=== PATIENT | female | born 1950 | race Caucasian/White ===

== ENCOUNTER 2020-03-02 09:59 | Emergency (ER) | payer BC ==
[~2020-03-02] VITALS: Ht 165.1 cm; Wt 115.9 kg
[2020-03-02] MEDS ORDERED: GLIPIZIDE ER10 MG (10:41)
[2020-03-02] MEDS ORDERED: ALLOPURINOL100 MG (10:41)
[2020-03-02] MEDS ORDERED: METFORMIN HCL1000 MG (10:41)
[2020-03-02] MEDS ORDERED: RAMIPRIL10 MG (10:41)
[2020-03-02] MEDS ORDERED: MULTI-VITAMIN1 EACH (10:42)
[2020-03-02] MEDS ORDERED: ALLEGRA ALLERGY60 MG (10:42)
--- NOTE | 2020-03-02 10:57 | Emergency Department Note ---
History of Present Illnes History of Present Illness Chief Complaint: Eye, Ear, Nose, Throat, Dental History of Present Illness This is a 69 year old female with a history of HTN, DM and partial deafness who presents for evaluation of a foreign body in the right ear. Pt states that she changed the small, soft plastic ear pieces on her hearing aids 2 night ago. She went to put the hearing aids in yesterday morning, and noted that the right one did not contain an ear piece. She assumed that it had fallen out on the floor whenever she changed them out. They are small and made of clear plastic, which makes them difficult to see. Pt had some difficulty putting the right hearing aid back in her ear, once she placed another earpiece. She states that she "feels somehting in the right ear," and she is concerned that it is the missing earpiece. She denies any ear pain, drainage or swelling. She has baseline hearing loss in this ear. 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 Any updates have been documented here. Past Medical History Recent Fever: No Clinical Suspicion of Infectio: No New/Unexplained Change in Ment: No Past Medical History: Hypertension, Diabetes Other Medical History: gout seasonal allergies Past Surgical History: Cholecysctectomy Other Surgery: wisdom teeth surgery Social History Smoking Cessation: Never Smoker Counseling Performed: No Alcohol Use: None Any Illegal Drug Use: No TB Exposure/Symptoms: No Physically hurt or threatened: No Family History Family history of heart diseas: Yes Other Last Tetanus: Unknown Any Pre-Existing Lines (PICC,: No Is patient up to date on immun: Yes Last Flu: UTD Last Pneumovax: UTD Review of Systems Review of Systems Constitutional: no symptoms EENTM: no symptoms Cardiovascular: no symptoms Respiratory: no symptoms Gastrointestinal: no symptoms Neurological: no symptoms Hematological/Lymphatic: no symptoms Review of other systems All other systems reviewed and negative. Physical Exam Related Data Allergies: Coded Allergies: cephalexin (Verified Allergy, Mild, 12/06/16) Uncoded Allergies: IVP DYE (Allergy, Intermediate, Hives, 12/06/16) SULFA (Allergy, Mild, 12/06/16) Triage Vital Signs Vital Signs Date Time Temp Pulse Resp B/P (MAP) Pulse Ox O2 Delivery O2 Flow Rate FiO2 03/02/20 10:15 97.6 59 16 151/86 99 Vital signs reviewed: Yes Physical Exam CONSTITUTIONAL Constitutional: well-developed, well-nourished HENT HENT: normocephalic, atraumatic, oropharynx clear/moist, nose normal HENT L/R: left TM normal, right TM normal, right canal normal (small, clear, hearing aid piece, lodged high up in the ear canal. ) EYES Eyes: PERRL, conjunctivae normal NECK Neck: ROM normal PULMONARY Pulmonary: effort normal, breath sounds normal CARDIOVASCULAR Cardiovascular: regular rhythm, heart sounds normal, capillary refill normal, normal rate GASTROINTESTINAL GENITOURINARY SKIN MUSCULOSKELETAL NEUROLOGICAL Neurological: alert, oriented x 3, no gross motor or sensory deficits PSYCHOLOGICAL Procedures Foreign Body - Ear Location: right ear canal Foreign body suspected: other plastic (small, clear, soft plastic cover of hearing aid earpiece) TM intact pre-procedure: yes Foreign body removed: yes Removal technique: irrigation Tympanic membrane intace: Yes Patient tolerated procedure: well Complications: none Additional comments Right ear was irrigated with lukewarm water x 3, which dislodged the hearing aid earpiece, and moved it closer to the outer ear canal, which made it accessible and easy to remove with the Alligator forceps. Pt tolerated procedure well. Critical Care Time Subsequent provider I assumed direction of critical care for this patient from another provider of my specialty. Assessment & Plan Assessment & Plan Final Impression: (1) SUPERFICIAL FOREIGN BODY OF RIGHT EAR, INITIAL ENCOUNTER (2) OTALGIA, RIGHT EAR (3) ESSENTIAL (PRIMARY) HYPERTENSION Assessment & Plan - Foreign body removed in total, without complication - Topical antibiotics prescribed, since the FB had been in the ear x 2 days, to try and prevent infection. - Pt to f/u with PCP, or return to the ED, if she develops: worsening ear pain, swelling or drainage (purulent or bloody), from the right ear. Depart Disposition: HOME, SELF-CARE Last Vital Signs Date Time Temp Pulse Resp B/P (MAP) Pulse Ox O2 Delivery O2 Flow Rate FiO2 03/02/20 10:15 97.6 59 16 151/86 99 Home Meds Active Scripts Neomy Sulf/Colist Sul/Hc/Thonz (CORTISPORIN-TC EAR SUSP) 10 Ml Drops.susp, 2 DROP RIGHT EAR BID for infection for 7 Days, #10 ML 0 Refills Prov:ELIUD STRINGER MD 03/02/20 Reported Medications Multivitamin (MULTI-VITAMIN DAILY) 1 Each Tablet 03/02/20 Fexofenadine Hcl (FELI ALLERGY) 60 Mg Tablet THERAPEUTICALLY SUBSTITUTED WITH CLARITIN 10MG 03/02/20 Allopurinol (ALLOPURINOL) 100 Mg Tablet 03/02/20 Metformin Hcl (METFORMIN HCL) 1,000 Mg Tablet 03/02/20 Ramipril (RAMIPRIL) 10 Mg Capsule 03/02/20 Glipizide (GLIPIZIDE ER) 10 Mg Tab.er.24 03/02/20 ELIUD STRINGER MD March 02, 2020 10:57
[2020-03-02] MEDS ORDERED: CORTISPORIN-TC10 ML RIGHT EAR (10:59)
[2020-03-02 11:12] VITALS: BP 137/85
== END 2020-03-02 11:10 | disposition home or self-care (01) ==
LOC: ER 09:59 → FSED 11:10
DX: H92.01 Otalgia, right ear (principal); T16.1XXA Foreign body in right ear, initial encounter; I10 Essential (primary) hypertension
CPT/HCPCS: 99283